=== PATIENT | female | born 1940 | race Caucasian/White ===

== ENCOUNTER 2017-08-22 03:27 | Inpatient (IN) | payer MEDICARE, BC ==
[2017-08-22] MEDS ORDERED: Lactated Ringers 1,000 ML IV ONE (03:59)
[2017-08-22] MEDS ORDERED: Acetaminophen 325 MG Tab, 50 Tab Bulk Bottle PO ONE (04:00)
[2017-08-22] MEDS ORDERED: Acetaminophen 325 MG Tab PO ONE (04:05)
--- NOTE | 2017-08-22 04:11 | EDM.PDOC ---
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 She was well earlier in the day, although did have a cough She's being treated for high blood pressure, never had symptoms or behavior like this before. Patient denies pain or chest discomfort No vomiting or diarrhea On arrival she was noted to have significant fever Headache Pain Score (Numeric/FACES): 5 - Related Data Allergies Allergy/AdvReac Type Severity Reaction Status Date / Time atorvastatin AdvReac Fatigue Verified 08/22/17 03:39 lisinopril AdvReac Muscle Verified 08/22/17 03:39 Aches rosuvastatin calcium AdvReac Muscle Verified 08/22/17 03:39 [From Crestor] Aches Home Meds: Home Meds Aspirin [Adult Low Dose Aspirin EC] 81 mg PO DAILY 08/22/17 [History] Cholecalciferol (Vitamin D3) [Vitamin D3] 1,000 units PO DAILY 08/22/17 [History ] Cyanocobalamin (Vitamin B-12) [Vitamin B-12] 1,000 mcg PO DAILY 08/22/17 [ History] Furosemide [Furosemide] 20 mg PO DAILY 08/22/17 [History] Gluc 2KCl/Chondr/Bay Hy/Hy Ac [Glucosamine & Chondroitin Cap] 1 each PO BID [History] Loratadine 10 mg PO DAILY 08/22/17 [History] Losartan [Cozaar] 100 mg PO DAILY 08/22/17 [History] Metoprolol Succinate [Toprol XL 100mg] 100 mg PO DAILY 08/22/17 [History] Sertraline [Zoloft] 200 mg PO DAILY 08/22/17 [History] busPIRone [Buspar] 15 mg PO BID 08/22/17 [History] metFORMIN [Glucophage] 1,000 mg PO BIDMEALS 08/22/17 [History] Past Medical History HEENT History: Reports: Hard of Hearing, Other (See Below) 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 Cardiovascular History: Reports: Hypertension 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: Psychiatric History: Reports: Anxiety, Depression Endocrine/Metabolic History: Reports: Diabetes, Type II, Obesity/BMI 30+ - Infectious Disease History Infectious Disease History: Reports: Chicken Pox - Past Surgical History GI Surgical History: Reports: Colonoscopy Social & Family History - Tobacco Use Smoking Status *Q: Never Smoker Second Hand Smoke Exposure: No - Caffeine Use Caffeine Use: Reports: Coffee, Soda - Recreational Drug Use Recreational Drug Use: No ED ROS GENERAL - Review of Systems Review Of Systems: Unable To Obtain (Due to confusion she is a bit unclear in her answers) ED EXAM, GENERAL - Physical Exam Exam: See Below Exam Limited By: No Limitations General Appearance: Lethargic, Mild Distress, Other (Febrile 101.9 does appear to be breathing a bit faster than usual with grunting respirations but no retractions) Eye Exam: Bilateral Eye: Normal Inspection Ears: Normal External Exam, Hearing Loss (Left, chronic), Other (Mild injection left eardrum, right eardrum is normal) Nose: Normal Inspection, Normal Mucosa Throat/Mouth: Normal Oropharynx, Other (Dry mouth and tongue, voice normal) Head: Atraumatic Neck: Supple, Non-Tender. No: Lymphadenopathy (R), Lymphadenopathy (L) Respiratory/Chest: No Accessory Muscle Use, Chest Non-Tender, Other (Mild tachypnea). No: Rhonchi, Wheezing Cardiovascular: Normal Peripheral Pulses, Regular Rate, Rhythm, No Murmur GI/Abdominal: Soft, Non-Tender, No Organomegaly Extremities: Normal Inspection, Non-Tender, No Pedal Edema, Increased Warmth Neurological: No Motor/Sensory Deficits, Inattentive Psychiatric: Flat Affect Skin Exam: Warm, Dry, No Rash, Increased Warmth Course - Vital Signs Last Recorded V/S: Last Vital Signs Temp 38.7 C H 08/22/17 04:33 Pulse 91 08/22/17 04:33 Resp 16 08/22/17 04:33 BP 148/63 H 08/22/17 04:33 Pulse Ox 95 08/22/17 04:33 - Orders/Labs/Meds Orders: Active Orders 24 hr Category Date Time Status Chest 1V Frontal [CR] Stat Exams 08/22/17 03:59 Taken CULTURE BLOOD [BC] Urgent Lab 08/22/17 04:10 Received CULTURE BLOOD [BC] Urgent Lab 08/22/17 04:15 Received CULTURE URINE [RM] Stat Lab 08/22/17 04:15 Received Lactated Ringers [Ringers, Lactated] 1,000 ml Med 08/22/17 03:59 Active IV BOLUS Blood Culture x2 Reflex Set [OM.PC] Urgent Oth 08/22/17 03:56 Ordered Medication Orders Lactated Ringer's (Ringers, Lactated) 1,000 mls @ 800 mls/hr IV BOLUS ONE Stop: 08/22/17 05:13 Last Admin: 08/22/17 04:03 Dose: 800 mls/hr Labs: Laboratory Tests 08/22/17 08/22/17 08/22/17 Range/Units 04:15 04:15 04:15 WBC 7.9 (4.5-11.0) K/uL RBC 4.11 (3.30-5.50) M/uL Hgb 12.1 (12.0-15.0) g/dL Hct 37.3 (36.0-48.0) % MCV 91 (80-98) fL MCH 29 (27-31) pg MCHC 32 (32-36) % Plt Count 129 L (150-400) K/uL Sodium 137 L (140-148) mmol/L Potassium 5.1 (3.6-5.2) mmol/L Chloride 100 (100-108) mmol/L Carbon Dioxide 25 (21-32) mmol/L Anion Gap 17.1 H (5.0-14.0) mmol/L BUN 26 H (7-18) mg/dL Creatinine 1.2 H (0.6-1.0) mg/dL Est Cr Clr Drug Dosing 37.92 mL/min Estimated GFR (MDRD) 44 L (>60) Glucose 118 H (74-106) mg/dL Lactic Acid 1.9 (0.4-2.0) mmol/L Calcium 8.8 (8.5-10.1) mg/dL Total Bilirubin 0.3 (0.2-1.0) mg/dL AST 24 (15-37) U/L ALT 34 (12-78) U/L Alkaline Phosphatase 50 (46-116) U/L Total Protein 7.3 (6.4-8.2) g/dL Albumin 3.7 (3.4-5.0) g/dL Globulin 3.6 H (2.3-3.5) g/dL Albumin/Globulin Ratio 1.0 L (1.2-2.2) Urine Color Urine Appearance Urine pH (4.5-8.0) Ur Specific [place] (1.008-1.030) Urine Protein (NEGATIVE) mg/dL Urine Glucose (UA) (NEGATIVE) mg/dL Urine Ketones (NEGATIVE) mg/dL Urine Occult Blood (NEGATIVE) Urine Nitrite (NEGATIVE) Urine Bilirubin (NEGATIVE) Urine Urobilinogen (NORMAL) mg/dL Ur Leukocyte Esterase (NEGATIVE) Urine RBC (0-5) Urine WBC (0-5) Ur Epithelial Cells Amorphous Sediment Urine Bacteria Urine Mucus 08/22/17 Range/Units 04:15 WBC (4.5-11.0) K/uL RBC (3.30-5.50) M/uL Hgb (12.0-15.0) g/dL Hct (36.0-48.0) % MCV (80-98) fL MCH (27-31) pg MCHC (32-36) % Plt Count (150-400) K/uL Sodium (140-148) mmol/L Potassium (3.6-5.2) mmol/L Chloride (100-108) mmol/L Carbon Dioxide (21-32) mmol/L Anion Gap (5.0-14.0) mmol/L BUN (7-18) mg/dL Creatinine (0.6-1.0) mg/dL Est Cr Clr Drug Dosing mL/min Estimated GFR (MDRD) (>60) Glucose (74-106) mg/dL Lactic Acid (0.4-2.0) mmol/L Calcium (8.5-10.1) mg/dL Total Bilirubin (0.2-1.0) mg/dL AST (15-37) U/L ALT (12-78) U/L Alkaline Phosphatase (46-116) U/L Total Protein (6.4-8.2) g/dL Albumin (3.4-5.0) g/dL Globulin (2.3-3.5) g/dL Albumin/Globulin Ratio (1.2-2.2) Urine Color Yellow Urine Appearance Slightly cloudy Urine pH 6.0 (4.5-8.0) Ur Specific [place] 1.015 (1.008-1.030) Urine Protein 100 H (NEGATIVE) mg/dL Urine Glucose (UA) Normal (NEGATIVE) mg/dL Urine Ketones Negative (NEGATIVE) mg/dL Urine Occult Blood Negative (NEGATIVE) Urine Nitrite Negative (NEGATIVE) Urine Bilirubin Negative (NEGATIVE) Urine Urobilinogen Normal (NORMAL) mg/dL Ur Leukocyte Esterase Negative (NEGATIVE) Urine RBC 0-5 (0-5) Urine WBC 0-5 (0-5) Ur Epithelial Cells Few Amorphous Sediment Few Urine Bacteria Moderate Urine Mucus Moderate Meds: Medications Generic Name Dose Route Start Last Admin Trade Name Freq PRN Reason Stop Dose Admin Lactated Ringer's 1,000 mls @ 800 mls/hr 08/22/17 03:59 08/22/17 04:03 Ringers, Lactated IV 08/22/17 05:13 800 mls/hr BOLUS ONE Administration Discontinued Medications Generic Name Dose Route Start Last Admin Trade Name Freq PRN Reason Stop Dose Admin Acetaminophen 650 mg 08/22/17 04:00 08/22/17 04:40 Tylenol Bulk Bottle PO 08/22/17 04:01 Not Given NOW ONE Acetaminophen 650 mg 08/22/17 04:05 08/22/17 04:17 Tylenol PO 08/22/17 04:06 650 mg NOW ONE Administration Oseltamivir Phosphate 30 mg 08/22/17 04:40 Tamiflu PO 08/22/17 04:41 STAT ONE - Re-Assessments/Exams Free Text/Narrative Re-Assessment/Exam: 08/22/17 04:17 77-year-old female with cough fever confusion Differential diagnosis includes pneumonia sepsis noninfectious conditions such as embolism, influenza and other conditions Lactated Ringer's 1000 mL bolus, urine and blood cultures 08/22/17 04:46 Chest x-ray negative for acute changes by my interpretation Hemoglobin and WBC normal Glucose 118 Electrolytes normal anion gap 12.1, normal, liver tests normal mild elevation of BUN/creatinine at 26 and creatinine at 1.2 and GFR of 44 Urinalysis by catheter within normal limits Influenza a swab positive. Tamiflu 30 mg by mouth Contact her physician for admission because confusion and fatigue and balance problems. Contacted at 04.53 08/22/17 04:52 Departure - Departure Time of Disposition: 04:48 Disposition: Admitted As Inpatient 68 Condition: Good, Fair Clinical Impression: Influenza, Confusion with nonfocal neurological examination - Discharge Information Referrals: PCP,None [Primary Care Provider] - - My Orders Last 24 Hours: My Active Orders 08/22/17 03:56 Blood Culture x2 Reflex Set [OM.PC] Urgent 08/22/17 03:59 Chest 1V Frontal [CR] Stat Lactated Ringers [Ringers, Lactated] 1,000 ml IV BOLUS 08/22/17 04:10 CULTURE BLOOD [BC] Urgent 08/22/17 04:15 CULTURE BLOOD [BC] Urgent CULTURE URINE [RM] Stat - Assessment/Plan Last 24 Hours: My Active Orders 08/22/17 03:56 Blood Culture x2 Reflex Set [OM.PC] Urgent 08/22/17 03:59 Chest 1V Frontal [CR] Stat Lactated Ringers [Ringers, Lactated] 1,000 ml IV BOLUS 08/22/17 04:10 CULTURE BLOOD [BC] Urgent 08/22/17 04:15 CULTURE BLOOD [BC] Urgent CULTURE URINE [RM] Stat
[2017-08-22] MEDS ORDERED: Oseltamivir 30 MG Cap PO ONE (04:40)
[2017-08-22] MEDS ORDERED: Acetaminophen 650 MG Supp RECTAL PRN (05:43)
[2017-08-22] MEDS ORDERED: Sodium Chloride 0.9% 1,000 ML IV SCH (05:45)
[2017-08-22] MEDS: Acetaminophen 325 MG Tab PO PRN ×4 (08:02→22:12)
--- NOTE | 2017-08-22 08:23 | PCM.HP ---
H&P History of Present Illness - General Date of Service: 08/22/17 Admit Problem/Dx: Admission Diagnosis/Problem Admission Diagnosis/Problem Influenza due to influenza A virus - History of Present Illness Initial Comments - Free Text/Narative: Yesterday started with dizziness and aching feeling then [place] and couldn't stand up. Then came in by ambulance came the the ER. Onset of Symptoms: Reports: Sudden Associated Symptoms: Reports: Fever/Chills, Loss of Appetite, Weakness Headache Pain Score (Numeric/FACES): 7 - Related Data Allergies/Adverse Reactions: Allergies Allergy/AdvReac Type Severity Reaction Status Date / Time atorvastatin AdvReac Fatigue Verified 08/22/17 03:39 lisinopril AdvReac Muscle Verified 08/22/17 03:39 Aches rosuvastatin calcium AdvReac Muscle Verified 08/22/17 03:39 [From Crestor] Aches Home Medications: Home Meds Aspirin [Adult Low Dose Aspirin EC] 81 mg PO DAILY 08/22/17 [History] Cholecalciferol (Vitamin D3) [Vitamin D3] 1,000 units PO DAILY 08/22/17 [History ] Cyanocobalamin (Vitamin B-12) [Vitamin B-12] 1,000 mcg PO DAILY 08/22/17 [ History] Furosemide [Furosemide] 20 mg PO DAILY 08/22/17 [History] Gluc 2KCl/Chondr/Bay Hy/Hy Ac [Glucosamine & Chondroitin Cap] 1 each PO BID [History] Loratadine 10 mg PO DAILY 08/22/17 [History] Losartan [Cozaar] 100 mg PO DAILY 08/22/17 [History] Metoprolol Succinate [Toprol XL 100mg] 100 mg PO DAILY 08/22/17 [History] Sertraline [Zoloft] 200 mg PO DAILY 08/22/17 [History] busPIRone [Buspar] 15 mg PO BID 08/22/17 [History] metFORMIN [Glucophage] 1,000 mg PO BIDMEALS 08/22/17 [History] Past Medical History HEENT History: Reports: Hard of Hearing, Other (See Below) 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 Cardiovascular History: Reports: Hypertension Gastrointestinal History: Reports: None [employer]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: Psychiatric History: Reports: Anxiety, Depression Endocrine/Metabolic History: Reports: Diabetes, Type II, Obesity/BMI 30+ - Infectious Disease History Infectious Disease History: Reports: Chicken Pox - Past Surgical History HEENT Surgical History: Reports: None Cardiovascular Surgical History: Reports: None GI Surgical History: Reports: Colonoscopy Social & Family History - Tobacco Use Smoking Status *Q: Never Smoker Second Hand Smoke Exposure: Yes - Caffeine Use Caffeine Use: Reports: Coffee - Recreational Drug Use Recreational Drug Use: No H&P Review of Systems - Review of Systems: Review Of Systems: See Below General: Reports: No Symptoms, Malaise, Weakness, Fatigue, Diaphoresis Pulmonary: Reports: Cough Cardiovascular: Reports: No Symptoms Gastrointestinal: Reports: No Symptoms Genitourinary: Reports: No Symptoms Musculoskeletal: Reports: Muscle Pain, Muscle Stiffness Skin: Reports: No Symptoms Psychiatric: Reports: No Symptoms Neurological: Reports: Difficulty Walking, Weakness, Gait Disturbance Exam - Exam Exam: See Below - Vital Signs Vital Signs: Last Vital Signs Temp 102.2 F H 08/22/17 05:23 Pulse 89 08/22/17 05:23 Resp 20 08/22/17 05:23 BP 148/73 H 08/22/17 05:23 Pulse Ox 97 08/22/17 05:23 Weight: 222 lb - Exam General: Alert, Oriented, 4 HEENT: PERRLA, Hearing Intact, Mucosa Moist & [place], Nares Patent, Normal Nasal Septum, Posterior Pharynx Clear, Conjunctiva Clear, EOMI, EACs Clear, TMs Clear Neck: Supple, Trachea Midline, 2 Lungs: Clear to Auscultation, Normal Respiratory Effort Cardiovascular: Regular Rate, Regular Rhythm GI/Abdominal Exam: Normal Bowel Sounds, Soft, Non-Tender, No Organomegaly, No Distention, No Abnormal Bruit, No Mass, Pelvis Stable Extremities: Normal Inspection, Normal Range of Motion, Non-Tender, No Pedal Edema, Normal Capillary Refill Peripheral Pulses: 1+: Radial (L), Radial (R) - Patient Data Result Diagrams: 08/22/17 04:15 08/23/17 05:35 *Q Meaningful Use (ADM) - VTE *Q VTE Criteria *Q: - Stroke *Q Stroke Criteria *Q: - AMI *Q AMI Criteria *Q: Problem List Initiated/Reviewed/Updated: Yes Orders Last 24hrs: Active Orders 24 hr Category Date Time Status Patient Status [ADT] Routine ADT 08/22/17 04:53 Active Consistent Carbohydrate Diet [DIET] Diet 08/22/17 Breakfast Active Acetaminophen [Tylenol] Med 08/22/17 05:43 Active 650 mg PO Q4H PRN Acetaminophen [Tylenol] Med 08/22/17 05:43 Active 650 mg RECTAL Q4H PRN Sodium Chloride 0.9% [Normal Saline] 1,000 ml Med 08/22/17 05:45 Active IV ASDIRECTED Medication Orders Acetaminophen (Tylenol) 650 mg PO Q4H PRN PRN Reason: Pain/Fever Last Admin: 08/22/17 08:02 Dose: 650 mg Acetaminophen (Tylenol) 650 mg RECTAL Q4H PRN PRN Reason: Pain/Fever Sodium Chloride (Normal Saline) 1,000 mls @ 250 mls/hr IV ASDIRECTED DURAN Last Admin: 08/22/17 05:54 Dose: 250 mls/hr Assessment/Plan Comment:: Assessment?Plan #1. TIA Vs CVA: Have ordered a MRI and Carotid artery study. There is a neuro defect that needs to be addressed. 8PM all studies have been neg. and she is feeling better. Will consider discharging home in the morning depending on her clinical presentation.
--- NOTE | 2017-08-22 08:52 | CR ---
Chest 1V Frontal INDICATION: cough fever confusion FINDINGS: Heart size and pulmonary vascularity accentuated by shallow inspiration and AP portable adrien hnique. No focal consolidation. No pleural effusion. Chest otherwise negative.
[2017-08-22] MEDS: busPIRone 5 MG Tab PO SCH ×2 (08:54→20:16)
[2017-08-22] MEDS: Loratadine 10 MG Tab PO SCH (08:55)
[2017-08-22] MEDS: metFORMIN 500 MG Tab PO SCH ×2 (08:56→18:00)
[2017-08-22] MEDS: Cyanocobalamin (Vitamin B12) 1,000 MCG Tab PO SCH (08:56)
[2017-08-22] MEDS: Cholecalciferol (Vitamin D3) 1,000 Unit Tab PO SCH (08:57)
[2017-08-22] MEDS: Losartan 50 MG Tab PO SCH (08:57)
[2017-08-22] MEDS: Oseltamivir 30 MG Cap PO SCH ×2 (08:57→20:17)
[2017-08-22] MEDS: Furosemide 20 MG Tab PO SCH (08:57)
[2017-08-22] MEDS: Aspirin 81 MG Tab.EC PO SCH (08:57)
[2017-08-22] MEDS: Sertraline 50 MG Tab PO SCH (08:58)
[2017-08-22] MEDS: Metoprolol Succinate 50 MG Tab.ER PO SCH (08:58)
[2017-08-22] MEDS: CHONDROITIN PO SCH ×2 (09:03→20:18)
[2017-08-22] MEDS: GLUCOSAMINE PO SCH ×2 (09:03→20:18)
[2017-08-22] MEDS: Sodium Chloride 0.9% 1,000 ML IV SCH ×2 (12:13→20:18)
[2017-08-23] MEDS: Sodium Chloride 0.9% 1,000 ML IV SCH (04:40)
[2017-08-23] MEDS: metFORMIN 500 MG Tab PO SCH ×2 (08:18→17:12)
[2017-08-23] MEDS: Loratadine 10 MG Tab PO SCH (08:19)
[2017-08-23] MEDS: Losartan 50 MG Tab PO SCH (08:19)
[2017-08-23] MEDS: busPIRone 5 MG Tab PO SCH ×2 (08:19→20:34)
[2017-08-23] MEDS: Metoprolol Succinate 50 MG Tab.ER PO SCH (08:20)
[2017-08-23] MEDS: Aspirin 81 MG Tab.EC PO SCH (08:20)
[2017-08-23] MEDS: GLUCOSAMINE PO SCH ×2 (08:20→20:33)
[2017-08-23] MEDS: CHONDROITIN PO SCH ×2 (08:20→20:33)
[2017-08-23] MEDS: Furosemide 20 MG Tab PO SCH (08:20)
[2017-08-23] MEDS: Cholecalciferol (Vitamin D3) 1,000 Unit Tab PO SCH (08:21)
[2017-08-23] MEDS: Cyanocobalamin (Vitamin B12) 1,000 MCG Tab PO SCH (08:21)
[2017-08-23] MEDS: Sertraline 50 MG Tab PO SCH (08:21)
[2017-08-23] MEDS: Acetaminophen 325 MG Tab PO PRN (08:26)
[2017-08-23] MEDS: Oseltamivir 30 MG Cap PO SCH ×2 (09:37→20:34)
--- NOTE | 2017-08-23 20:06 | PCM.PN ---
- General Info Date of Service: 08/23/17 Functional Status: Reports: Pain Controlled - Review of Systems General: Reports: Weakness HEENT: Reports: No Symptoms Pulmonary: Reports: Shortness of Breath, Cough Cardiovascular: Reports: No Symptoms Gastrointestinal: Reports: No Symptoms Genitourinary: Reports: No Symptoms Musculoskeletal: Reports: No Symptoms Skin: Reports: No Symptoms Neurological: Reports: No Symptoms Psychiatric: Reports: No Symptoms - Patient Data Vitals - Most Recent: Last Vital Signs Temp 98.5 F 08/23/17 19:00 Pulse 58 L 08/23/17 19:00 Resp 18 08/23/17 19:00 BP 131/64 08/23/17 19:00 Pulse Ox 94 L 08/23/17 19:00 Weight - Most Recent: 222 lb 0.017 oz I&O - Last 24 Hours: Intake & Output 08/23/17 08/23/17 08/23/17 06:59 14:59 22:59 Intake Total 2116 480 236 Output Total 1352 350 100 Balance 764 130 136 Lab Results Last 24 Hours: Laboratory Results - last 24 hr 08/23/17 Range/Units 05:35 Sodium 138 L (140-148) mmol/L Potassium 4.1 (3.6-5.2) mmol/L Chloride 103 (100-108) mmol/L Carbon Dioxide 27 (21-32) mmol/L Anion Gap 12.1 (5.0-14.0) mmol/L BUN 20 H (7-18) mg/dL Creatinine 1.0 (0.6-1.0) mg/dL Est Cr Clr Drug Dosing 45.75 mL/min Estimated GFR (MDRD) 54 L (>60) Glucose 111 H (74-106) mg/dL Calcium 8.3 L (8.5-10.1) mg/dL Med Orders - Current: Current Medications Acetaminophen (Tylenol) 650 mg PO Q4H PRN PRN Reason: Pain/Fever Last Admin: 08/23/17 08:26 Dose: 650 mg Acetaminophen (Tylenol) 650 mg RECTAL Q4H PRN PRN Reason: Pain/Fever Aspirin (Halfprin) 81 mg PO DAILY [facility] Last Admin: 08/23/17 08:20 Dose: 81 mg Buspirone HCl (Buspar) 15 mg PO BID [facility] Last Admin: 08/23/17 08:19 Dose: 15 mg Cholecalciferol (Vitamin D3) 1,000 units PO DAILY [facility] Last Admin: 08/23/17 08:21 Dose: 1,000 units Cyanocobalamin (Vitamin B12) 1,000 mcg PO DAILY [facility] Last Admin: 08/23/17 08:21 Dose: 1,000 mcg Furosemide (Lasix) 20 mg PO DAILY [facility] Last Admin: 08/23/17 08:20 Dose: 20 mg Loratadine (Claritin) 10 mg PO DAILY [facility] Last Admin: 08/23/17 08:19 Dose: 10 mg Losartan Potassium (Cozaar) 100 mg PO DAILY [facility] Last Admin: 08/23/17 08:19 Dose: 100 mg Metformin HCl (Glucophage) 1,000 mg PO BIDNDALS [facility] Last Admin: 08/23/17 17:12 Dose: 1,000 mg Metoprolol Succinate (Toprol Xl) 100 mg PO DAILY [facility] Last Admin: 08/23/17 08:20 Dose: 100 mg Glucosamine & (Chondroitin (Ptom)) 1 each PO BID [facility] Last Admin: 08/23/17 08:20 Dose: Not Given Oseltamivir Phosphate (Tamiflu) 30 mg PO BID [facility] Last Admin: 08/23/17 09:37 Dose: 30 mg Sertraline HCl (Zoloft) 200 mg PO DAILY [facility] Last Admin: 08/23/17 08:21 Dose: 200 mg Discontinued Medications Acetaminophen (Tylenol Bulk Bottle) 650 mg PO NOW ONE Stop: 08/22/17 04:01 Last Admin: 08/22/17 04:40 Dose: Not Given Acetaminophen (Tylenol) 650 mg PO NOW ONE Stop: 08/22/17 04:06 Last Admin: 08/22/17 04:17 Dose: 650 mg Lactated Ringer's (Ringers, Lactated) 1,000 mls @ 800 mls/hr IV BOLUS ONE Stop: 08/22/17 05:13 Last Admin: 08/22/17 04:03 Dose: 800 mls/hr Sodium Chloride (Normal Saline) 1,000 mls @ 250 mls/hr IV ASDIRECTED [facility] Last Admin: 08/22/17 05:54 Dose: 250 mls/hr Sodium Chloride (Normal Saline) 1,000 mls @ 125 mls/hr IV ASDIRECTED [facility] Last Admin: 08/23/17 04:40 Dose: 125 mls/hr Oseltamivir Phosphate (Tamiflu) 30 mg PO STAT ONE Stop: 08/22/17 04:41 Last Admin: 08/22/17 04:53 Dose: 30 mg - Exam General: Alert, Oriented HEENT: Pupils Equal, Pupils Reactive, EOMI, Mucous Membr. Moist/[place] Neck: Supple Lungs: Clear to Auscultation, Normal Respiratory Effort Cardiovascular: Regular Rate, Regular Rhythm GI/Abdominal Exam: Normal Bowel Sounds, Soft, Non-Tender, No Organomegaly, No Distention, No Abnormal Bruit, No Mass, Pelvis Stable Back Exam: Normal Inspection, Full Range of Motion Extremities: Normal Inspection, Normal Range of Motion, Non-Tender, No Pedal Edema, Normal Capillary Refill Peripheral Pulses: 1+: Radial (L), Radial (R) Skin: Warm, Dry, Intact Psy/Mental Status: Alert, Normal Affect, Normal Mood - Problem List Review Problem List Initiated/Reviewed/Updated: Yes - My Orders Last 24 Hours: My Active Orders 08/23/17 08:12 Convert IV to Peripheral Lock [Convert IV to Saline Lock] [OM.PC] Routine 08/23/17 Breakfast Regular Diet [DIET] 08/24/17 08:00 GLUCOSE POC LAB TO COLLECT [POC] BIDAC 08/24/17 17:00 GLUCOSE POC LAB TO COLLECT [POC] BIDAC - Plan Plan:: ASsessment/Plan: Viral syndrome: Influ.A She is improving and for the first time is afrebile this evening. She had a fever until this afternoon. I expect she should be ready for discharge in the next 36 hrs.,
[2017-08-24] MEDS: Acetaminophen 325 MG Tab PO PRN (04:08)
[2017-08-24] MEDS: CHONDROITIN PO SCH (08:21)
[2017-08-24] MEDS: GLUCOSAMINE PO SCH (08:21)
[2017-08-24] MEDS: Loratadine 10 MG Tab PO SCH (09:42)
[2017-08-24] MEDS: busPIRone 5 MG Tab PO SCH (09:42)
[2017-08-24] MEDS: metFORMIN 500 MG Tab PO SCH (09:42)
[2017-08-24] MEDS: Furosemide 20 MG Tab PO SCH (09:43)
[2017-08-24] MEDS: Aspirin 81 MG Tab.EC PO SCH (09:43)
[2017-08-24] MEDS: Oseltamivir 30 MG Cap PO SCH (09:43)
[2017-08-24] MEDS: Losartan 50 MG Tab PO SCH (09:43)
[2017-08-24] MEDS: Sertraline 50 MG Tab PO SCH (09:44)
[2017-08-24] MEDS: Cyanocobalamin (Vitamin B12) 1,000 MCG Tab PO SCH (09:44)
[2017-08-24] MEDS: Cholecalciferol (Vitamin D3) 1,000 Unit Tab PO SCH (09:44)
[2017-08-24] MEDS: Metoprolol Succinate 50 MG Tab.ER PO SCH (09:44)
[2017-08-24] MEDS ORDERED: Ciprofloxacin 500 MG Tab PO SCH (10:30)
--- NOTE | 2017-08-24 12:57 | PCM.PN ---
- General Info Date of Service: 08/24/17 Functional Status: Reports: Pain Controlled - Review of Systems General: Reports: Weakness, Fatigue HEENT: Reports: No Symptoms Pulmonary: Reports: No Symptoms Cardiovascular: Reports: Other (She has a slight cough) Gastrointestinal: Reports: No Symptoms Genitourinary: Reports: No Symptoms Musculoskeletal: Reports: No Symptoms Skin: Reports: No Symptoms Neurological: Reports: No Symptoms Psychiatric: Reports: No Symptoms - Patient Data Vitals - Most Recent: Last Vital Signs Temp 97.8 F 08/24/17 09:24 Pulse 60 08/24/17 09:44 Resp 14 08/24/17 09:24 BP 133/74 08/24/17 09:44 Pulse Ox 94 L 08/24/17 09:24 Weight - Most Recent: 222 lb I&O - Last 24 Hours: Intake & Output 08/23/17 08/24/17 08/24/17 22:59 06:59 14:59 Intake Total 736 240 Output Total 100 300 Balance 636 -300 240 Lab Results Last 24 Hours: Laboratory Results - last 24 hr 08/24/17 08/24/17 Range/Units 04:26 04:26 WBC 5.0 (4.5-11.0) K/uL RBC 4.32 (3.30-5.50) M/uL Hgb 12.7 (12.0-15.0) g/dL Hct 39.4 (36.0-48.0) % MCV 91 (80-98) fL MCH 29 (27-31) pg MCHC 32 (32-36) % Plt Count 130 L (150-400) K/uL Neut % (Auto) 42 (36-66) % Lymph % (Auto) 38 (24-44) % [place] % (Auto) 17 H (2-6) % Eos % (Auto) 3 (2-4) % Baso % (Auto) 0 (0-1) % Sodium 139 L (140-148) mmol/L Potassium 3.8 (3.6-5.2) mmol/L Chloride 102 (100-108) mmol/L Carbon Dioxide 26 (21-32) mmol/L Anion Gap 14.8 H (5.0-14.0) mmol/L BUN 24 H (7-18) mg/dL Creatinine 1.1 H (0.6-1.0) mg/dL Est Cr Clr Drug Dosing 41.59 mL/min Estimated GFR (MDRD) 48 L (>60) Glucose 99 (74-106) mg/dL Calcium 8.4 L (8.5-10.1) mg/dL Med Orders - Current: Current Medications Acetaminophen (Tylenol) 650 mg PO Q4H PRN PRN Reason: Pain/Fever Last Admin: 08/24/17 04:08 Dose: 650 mg Acetaminophen (Tylenol) 650 mg RECTAL Q4H PRN PRN Reason: Pain/Fever Aspirin (Halfprin) 81 mg PO DAILY [facility] Last Admin: 08/24/17 09:43 Dose: 81 mg Buspirone HCl (Buspar) 15 mg PO BID [facility] Last Admin: 08/24/17 09:42 Dose: 15 mg Cholecalciferol (Vitamin D3) 1,000 units PO DAILY [facility] Last Admin: 08/24/17 09:44 Dose: 1,000 units Ciprofloxacin (Ciprofloxacin Hcl) 500 mg PO BIDAC [facility] Stop: 08/26/17 16:31 Last Admin: 08/24/17 11:37 Dose: 500 mg Cyanocobalamin (Vitamin B12) 1,000 mcg PO DAILY [facility] Last Admin: 08/24/17 09:44 Dose: 1,000 mcg Furosemide (Lasix) 20 mg PO DAILY [facility] Last Admin: 08/24/17 09:43 Dose: 20 mg Loratadine (Claritin) 10 mg PO DAILY [facility] Last Admin: 08/24/17 09:42 Dose: 10 mg Losartan Potassium (Cozaar) 100 mg PO DAILY [facility] Last Admin: 08/24/17 09:43 Dose: 100 mg Metformin HCl (Glucophage) 1,000 mg PO BIDMEALS [facility] Last Admin: 08/24/17 09:42 Dose: 1,000 mg Metoprolol Succinate (Toprol Xl) 100 mg PO DAILY [facility] Last Admin: 08/24/17 09:44 Dose: 100 mg Glucosamine & (Chondroitin (Ptom)) 1 each PO BID [facility] Last Admin: 08/24/17 08:21 Dose: Not Given Oseltamivir Phosphate (Tamiflu) 30 mg PO BID [facility] Last Admin: 08/24/17 09:43 Dose: 30 mg Sertraline HCl (Zoloft) 200 mg PO DAILY [facility] Last Admin: 08/24/17 09:44 Dose: 200 mg Discontinued Medications Acetaminophen (Tylenol Bulk Bottle) 650 mg PO NOW ONE Stop: 08/22/17 04:01 Last Admin: 08/22/17 04:40 Dose: Not Given Acetaminophen (Tylenol) 650 mg PO NOW ONE Stop: 08/22/17 04:06 Last Admin: 08/22/17 04:17 Dose: 650 mg Lactated Ringer's (Ringers, Lactated) 1,000 mls @ 800 mls/hr IV BOLUS ONE Stop: 08/22/17 05:13 Last Admin: 08/22/17 04:03 Dose: 800 mls/hr Sodium Chloride (Normal Saline) 1,000 mls @ 250 mls/hr IV ASDIRECTED [facility] Last Admin: 08/22/17 05:54 Dose: 250 mls/hr Sodium Chloride (Normal Saline) 1,000 mls @ 125 mls/hr IV ASDIRECTED [facility] Last Admin: 08/23/17 04:40 Dose: 125 mls/hr Oseltamivir Phosphate (Tamiflu) 30 mg PO STAT ONE Stop: 08/22/17 04:41 Last Admin: 08/22/17 04:53 Dose: 30 mg - Exam General: Alert, Oriented HEENT: Pupils Equal, Pupils Reactive, EOMI, Mucous Membr. Moist/[place] Neck: Supple Lungs: Clear to Auscultation, Normal Respiratory Effort Cardiovascular: Regular Rate, Regular Rhythm GI/Abdominal Exam: Normal Bowel Sounds, Soft, Non-Tender, No Organomegaly, No Distention, No Abnormal Bruit, No Mass, Pelvis Stable Back Exam: Normal Inspection, Full Range of Motion Extremities: Normal Inspection, Normal Range of Motion, Non-Tender, No Pedal Edema, Normal Capillary Refill Peripheral Pulses: 1+: Radial (L), Radial (R) Skin: Warm, Dry, Intact Psy/Mental Status: Alert, Normal Affect, Normal Mood - Problem List Review Problem List Initiated/Reviewed/Updated: Yes - My Orders Last 24 Hours: My Active Orders 08/24/17 10:30 Ciprofloxacin [Ciprofloxacin HCl] 500 mg PO BIDAC 08/24/17 17:00 GLUCOSE POC LAB TO COLLECT [POC] BIDAC - Plan Plan:: Assessment?Plan #1. Viral syndrome: She's doing much better I feel she is stable to go home. We'll discharge her home to take the rest of the 5 day treatment of Tamiflu. #2. Urinary tract infection. The urine did grow out bacteria I will continue with ciprofloxacin 500 mg twice a day. Prescription has been given. #3. Obesity: Encouraged her to change her diet and exercise and lose weight. #4. Hypertension: Her blood pressure is good control. We'll continue with the same medication she is on she came in. #5. Anxiety: She'll continue with buspirone.
--- NOTE | 2017-08-24 12:57 | PCM.DCSUM1 ---
Discharge Summary - Hospital Course Brief History: She was admitted with the sudden onset of respiratory distress and coughing severe weakness. She came to the emergency room and was admitted after finding out that she had influenza A. - Discharge Data Discharge Date: 08/24/17 Discharge Disposition: Home, Self-Care 01 Condition: Good - Patient Summary/Data Hospital Course: She was admitted and supportive care initially she was tried with significant dehydration. She was treated with appropriate fluids and made a significant improvement. Laboratory analysis are as listed above. She does have a urinary tract infection that was found while she was in the hospital with sensitivities to ciprofloxacin. She made a gradual improvement with more strength and able to walk with minimal difficulty at the time of discharge. I will reevaluate in 1-2 weeks depending on her needs but she is doing quite well at the present time. All medicines were reviewed as listed. - Patient Instructions Diet: Heart Healthy Diet Other/Special Instructions: I will reevaluate in 1-2 weeks or sooner if needed particularly for fever comes back or cough becomes worse. - Discharge Plan Home Medications: Home Meds Aspirin [Adult Low Dose Aspirin EC] 81 mg PO DAILY 08/22/17 [History] Cholecalciferol (Vitamin D3) [Vitamin D3] 1,000 units PO DAILY 08/22/17 [History ] Cyanocobalamin (Vitamin B-12) [Vitamin B-12] 1,000 mcg PO DAILY 08/22/17 [ History] Furosemide 20 mg PO DAILY 08/22/17 [History] Gluc 2KCl/Chondr/[place] Hy/Hy Ac [Glucosamine & Chondroitin Cap] 1 each PO BID [History] Loratadine 10 mg PO DAILY 08/22/17 [History] Losartan [Cozaar] 100 mg PO DAILY 08/22/17 [History] Metoprolol Succinate [Toprol XL 100mg] 100 mg PO DAILY 08/22/17 [History] Sertraline [Zoloft] 200 mg PO DAILY 08/22/17 [History] busPIRone [Buspar] 15 mg PO BID 08/22/17 [History] metFORMIN [Glucophage] 1,000 mg PO BIDMEALS 08/22/17 [History] Ciprofloxacin [IJD: Ciprofloxacin HCl] 500 mg PO BIDAC tablet 08/24/17 [Rx] Oseltamivir [Tamiflu] 30 mg PO BID cap 08/24/17 [Rx] Patient Handouts: Influenza, Adult, [id number], Oseltamivir capsules, Ciprofloxacin tablets Referrals: PCP,None [Primary Care Provider] - 08/31/17 11:30 am - Discharge Summary/Plan Comment Discharge Summary/Plan Comment: Assessment?Plan #1. Viral syndrome: She's doing much better I feel she is stable to go home. We'll discharge her home to take the rest of the 5 day treatment of Tamiflu. #2. Urinary tract infection. The urine did grow out bacteria I will continue with ciprofloxacin 500 mg twice a day. Prescription has been given. #3. Obesity: Encouraged her to change her diet and exercise and lose weight. #4. Hypertension: Her blood pressure is good control. We'll continue with the same medication she is on she came in. #5. Anxiety: She'll continue with buspirone. - Patient Data Vitals - Most Recent: Last Vital Signs Temp 97.8 F 08/24/17 09:24 Pulse 60 08/24/17 09:44 Resp 14 08/24/17 09:24 BP 133/74 08/24/17 09:44 Pulse Ox 94 L 08/24/17 09:24 Weight - Most Recent: 222 lb I&O - Last 24 hours: Intake & Output 08/23/17 08/24/17 08/24/17 22:59 06:59 14:59 Intake Total 736 240 Output Total 100 300 Balance 636 -300 240 Lab Results - Last 24 hrs: Laboratory Results - last 24 hr 08/24/17 08/24/17 Range/Units 04:26 04:26 WBC 5.0 (4.5-11.0) K/uL RBC 4.32 (3.30-5.50) M/uL Hgb 12.7 (12.0-15.0) g/dL Hct 39.4 (36.0-48.0) % MCV 91 (80-98) fL MCH 29 (27-31) pg MCHC 32 (32-36) % Plt Count 130 L (150-400) K/uL Neut % (Auto) 42 (36-66) % Lymph % (Auto) 38 (24-44) % [place] % (Auto) 17 H (2-6) % Eos % (Auto) 3 (2-4) % Baso % (Auto) 0 (0-1) % Sodium 139 L (140-148) mmol/L Potassium 3.8 (3.6-5.2) mmol/L Chloride 102 (100-108) mmol/L Carbon Dioxide 26 (21-32) mmol/L Anion Gap 14.8 H (5.0-14.0) mmol/L BUN 24 H (7-18) mg/dL Creatinine 1.1 H (0.6-1.0) mg/dL Est Cr Clr Drug Dosing 41.59 mL/min Estimated GFR (MDRD) 48 L (>60) Glucose 99 (74-106) mg/dL Calcium 8.4 L (8.5-10.1) mg/dL Med Orders - Current: Current Medications Acetaminophen (Tylenol) 650 mg PO Q4H PRN PRN Reason: Pain/Fever Last Admin: 08/24/17 04:08 Dose: 650 mg Acetaminophen (Tylenol) 650 mg RECTAL Q4H PRN PRN Reason: Pain/Fever Aspirin (Halfprin) 81 mg PO DAILY [facility] Last Admin: 08/24/17 09:43 Dose: 81 mg Buspirone HCl (Buspar) 15 mg PO BID [facility] Last Admin: 08/24/17 09:42 Dose: 15 mg Cholecalciferol (Vitamin D3) 1,000 units PO DAILY [facility] Last Admin: 08/24/17 09:44 Dose: 1,000 units Ciprofloxacin (Ciprofloxacin Hcl) 500 mg PO BIDAC [facility] Stop: 08/26/17 16:31 Last Admin: 08/24/17 11:37 Dose: 500 mg Cyanocobalamin (Vitamin B12) 1,000 mcg PO DAILY [facility] Last Admin: 08/24/17 09:44 Dose: 1,000 mcg Furosemide (Lasix) 20 mg PO DAILY [facility] Last Admin: 08/24/17 09:43 Dose: 20 mg Loratadine (Claritin) 10 mg PO DAILY [facility] Last Admin: 08/24/17 09:42 Dose: 10 mg Losartan Potassium (Cozaar) 100 mg PO DAILY [facility] Last Admin: 08/24/17 09:43 Dose: 100 mg Metformin HCl (Glucophage) 1,000 mg PO BIDMEALS [facility] Last Admin: 08/24/17 09:42 Dose: 1,000 mg Metoprolol Succinate (Toprol Xl) 100 mg PO DAILY [facility] Last Admin: 08/24/17 09:44 Dose: 100 mg Glucosamine & (Chondroitin (Ptom)) 1 each PO BID [facility] Last Admin: 08/24/17 08:21 Dose: Not Given Oseltamivir Phosphate (Tamiflu) 30 mg PO BID [facility] Last Admin: 08/24/17 09:43 Dose: 30 mg Sertraline HCl (Zoloft) 200 mg PO DAILY [facility] Last Admin: 08/24/17 09:44 Dose: 200 mg Discontinued Medications Acetaminophen (Tylenol Bulk Bottle) 650 mg PO NOW ONE Stop: 08/22/17 04:01 Last Admin: 08/22/17 04:40 Dose: Not Given Acetaminophen (Tylenol) 650 mg PO NOW ONE Stop: 08/22/17 04:06 Last Admin: 08/22/17 04:17 Dose: 650 mg Lactated Ringer's (Ringers, Lactated) 1,000 mls @ 800 mls/hr IV BOLUS ONE Stop: 08/22/17 05:13 Last Admin: 08/22/17 04:03 Dose: 800 mls/hr Sodium Chloride (Normal Saline) 1,000 mls @ 250 mls/hr IV ASDIRECTED [facility] Last Admin: 08/22/17 05:54 Dose: 250 mls/hr Sodium Chloride (Normal Saline) 1,000 mls @ 125 mls/hr IV ASDIRECTED [facility] Last Admin: 08/23/17 04:40 Dose: 125 mls/hr Oseltamivir Phosphate (Tamiflu) 30 mg PO STAT ONE Stop: 08/22/17 04:41 Last Admin: 08/22/17 04:53 Dose: 30 mg *Q Meaningful Use (DIS) - VTE *Q VTE Criteria *Q: - Stroke *Q Stroke Criteria *Q: - AMI *Q AMI Criteria *Q:
== END 2017-08-24 14:15 | disposition home or self-care (01) | DRG 153 ==
LOC: JP.ED 03:27 → JP.MS 04:53
PROVIDERS: ADMIT Internal Medicine; ATTEND Internal Medicine
DX: J11.1 Influenza due to unidentified influenza virus with other respiratory manifestations (principal); N39.0 Urinary tract infection, site not specified; E86.0 Dehydration; I10 Essential (primary) hypertension; E11.9 Type 2 diabetes mellitus without complications; R05 Cough; R50.9 Fever, unspecified; R41.0 Disorientation, unspecified; Z79.84 Long term (current) use of oral hypoglycemic drugs; B96.89 Other specified bacterial agents as the cause of diseases classified elsewhere; F41.9 Anxiety disorder, unspecified; F32.9 Major depressive disorder, single episode, unspecified; H91.92 Unspecified hearing loss, left ear; E66.9 Obesity, unspecified; Z68.26 Body mass index [BMI] 26.0-26.9, adult; Z79.82 Long term (current) use of aspirin; Z88.8 Allergy status to other drugs, medicaments and biological substances
CPT/HCPCS: 36415; 71045 ×2; 80053; 81001; 82803; 83605; 85027; 87040 ×2; 87086; 87088; 87186; 87804 ×2; 96360; 99285; A9270 ×2; J7120; 80048; 82962; 85025; 99284; J7030